=== PATIENT | male | born 1975 | race Caucasian/White ===

== ENCOUNTER 2021-06-22 11:55 | Observation (INO) ==
[2021-06-22] MEDS ORDERED: ONDANSETRON INJ 2 MG/ML 2 ML VIAL IV STA (12:06)
[2021-06-22] MEDS ORDERED: ASPIRIN CHEW 324 MG PO STA (12:06)
[2021-06-22] MEDS ORDERED: MoRPHine SULFATE 4 MG/ML 1 ML CARP\\VIAL IV STA (12:06)
[2021-06-22] MEDS ORDERED: ALUMINUM/MAGNESIUM SUSP 30 ML UDC PO STA (12:07)
--- NOTE | 2021-06-22 12:17 | Emergency Department Note ---
Impression & Plan Chest pain, exertional ED Provider Note NAME: STEVEN PATEL AGE: 46 SEX: M : 1975 ARRIVES VIA: Walk-In INFORMANT: Patient, ED PROVIDER(S): Edson Murcia DO CHIEF COMPLAINT: Chest pain HPI: The patient is a 46-year-old male who presented to the emergency department through triage for an evaluation of chest discomfort. The patient describes anterior chest pain in his upper chest. He states he sometimes notices it in h is left shoulder but for the most part it is nonradiating. The patient did notice the pain was somewhat worsened with exertion. 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 The patient states that he is never had similar symptoms in the past. He does have a family history of sudden cardiac . He denies having any medical issues but does have elevated blood pressure upon arrival to the emergency department. He states his symptoms are moderate. He denies having any lower extremity swelling. He has no pain upon deep breathing. He does not have a primary care physician. ROS: See above HPI for pertinent positives & negatives. A total of 10 systems reviewed and were otherwise negative. PAST MEDICAL HISTORY: See Below PAST SURGICAL HISTORY: See Below FAMILY HISTORY: See Below SOCIAL HISTORY: See Below HOME MEDICATIONS: See Below ALLERGIES: See Below VITALS: See Below PHYSICAL EXAMINATION: GENERAL: The patient is awake and alert. He appears to be uncomfortable. EYES: The conjunctivae are clear. The pupils are round and reactive. EARS, NOSE, MOUTH AND THROAT: The nose is without any evidence of any deformity. NECK: The neck is nontender and supple. RESPIRATORY: Normal respiratory effort is noted there is no evidence of wheezing rhonchi or rales CARDIOVASCULAR: Regular rate and rhythm noted there no murmurs rubs or gallops normal S1 normal S2. GASTROINTESTINAL: The abdomen is soft. Abdomen is nontender. MUSCULOSKELETAL/EXTREMITIES: There is no evidence of gross deformity full range of motion is noted in the hips and shoulders. SKIN: There is no obvious evidence of any rash. There are no petechiae, pallor or cyanosis noted. NEUROLOGIC: Patient is awake alert and oriented x3 MEDICAL DECISION MAKING: Patient is a 46-year-old male who presented to the emergency department for an evaluation of exertional chest pain. The patient had elevated blood pressure initially. I discussed the patient's laboratory and radiographic studies with him. I also discussed the limitations of the emergency department work-up for chest pain with him. Given his exertional symptoms and his risk factors he may have a higher heart score and may require provocative testing. The patient does not have a primary care physician currently. For this reason I discussed this case with the on-call [facility] freight manager and then the on-call [facility] hospitalist group. They have agreed to evaluate the patient for formal management and disposition. He was treated with aspirin and Maalox in the emergency department. He was reevaluated multiple times. Triage Nursing notes reviewed. Prior medical records reviewed Vital Signs: reviewed and remarkable for no significant abnormalities Differential diagnosis: Cardiac ischemia, aortic dissection, pulmonary embolism, pneumothorax, pneumonia, pericarditis, myocarditis, esophageal rupture, GERD, cholecystitis, pancreatitis, musculoskeletal, as well as other pathologies. ER treatment provided: See below Diagnostics interpreted by me: ECG: EKG was obtained in the emergency department. My interpretation is normal sinus rhythm at 100 bpm. There is no ectopy. There is no acute ST segment abnormalities noted. No previous tracing was available. Cardiac Monitoring: An order was placed for continuous cardiac monitoring. The monitor shows a rate of 79 bpm with sinus rhythm. Laboratory studies: As stated above and show below. Imaging studies: See below Consultation(s): I discussed this case with Nica bishop who is on-call for the [facility] hospitalist group. I discussed this case with Dr. Bhatia who is on-call for [facility] cardiology. 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 Beliefs That Will Affect Care: None Current Living Situation: Spouse Feels Safe at Home: Yes Safety Concerns: Feels Safe At This Time Assistive Devices: Glasses Allergies Allergies Allergy/AdvReac Type Severity Reaction Status Date / Time No Known Allergies Allergy Verified 06/22/21 13:45 Home Meds Home Medications Medication Instructions Recorded Confirmed No Known Home Medications 06/22/21 06/22/21 Results & Data (ED) Vital Signs Vital Signs - 24 hr 06/22/21 11:55 06/22/21 12:06 06/22/21 12:20 Temperature 37.2 C Temperature Source Oral Pulse Rate 110 H 85 84 Pulse Rate [Apical] 108 H Pulse Rate from SpO2 Sensor 84 Pulse Rhythm Regular Respiratory Rate 16 18 26 H Blood Pressure 170/103 H Blood Pressure [Left Arm] 107/103 H Blood Pressure Mean 125 Blood Pressure Mean [Left Arm] 104 Pulse Oximetry 98 96 96 Oxygen Delivery Method Room Air Sepsis Recent Fever Within 48 Hours No Sepsis New/Unexplained Change in Mental Status No Sepsis Action Taken by Nursing No Action Required 06/22/21 12:30 06/22/21 13:00 06/22/21 13:25 Temperature Temperature Source Pulse Rate 84 78 77 Pulse Rate [Apical] Pulse Rate from SpO2 Sensor 84 80 79 Pulse Rhythm Respiratory Rate 19 23 17 Blood Pressure 144/85 H Blood Pressure [Left Arm] Blood Pressure Mean 104 Blood Pressure Mean [Left Arm] Pulse Oximetry 94 95 96 Oxygen Delivery Method Sepsis Recent Fever Within 48 Hours Sepsis New/Unexplained Change in Mental Status Sepsis Action Taken by Nursing 06/22/21 13:30 06/22/21 14:00 06/22/21 14:30 Temperature Temperature Source Pulse Rate 89 80 83 Pulse Rate [Apical] 77 Pulse Rate from SpO2 Sensor 85 78 82 Pulse Rhythm Respiratory Rate 20 19 24 Blood Pressure 139/85 126/90 136/89 Blood Pressure [Left Arm] 126/90 Blood Pressure Mean 103 102 104 Blood Pressure Mean [Left Arm] 102 Pulse Oximetry 96 94 95 Oxygen Delivery Method Sepsis Recent Fever Within 48 Hours Sepsis New/Unexplained Change in Mental Status Sepsis Action Taken by Nursing 06/22/21 15:00 06/22/21 15:30 06/22/21 15:44 Temperature Temperature Source Pulse Rate 84 79 77 Pulse Rate [Apical] Pulse Rate from SpO2 Sensor 82 78 79 Pulse Rhythm Respiratory Rate 15 14 14 Blood Pressure 123/82 120/80 Blood Pressure [Left Arm] Blood Pressure Mean 95 93 Blood Pressure Mean [Left Arm] Pulse Oximetry 93 96 94 Oxygen Delivery Method Sepsis Recent Fever Within 48 Hours Sepsis New/Unexplained Change in Mental Status Sepsis Action Taken by Nursing 06/22/21 16:00 06/22/21 16:30 06/22/21 17:00 Temperature Temperature Source Pulse Rate 79 87 81 Pulse Rate [Apical] Pulse Rate from SpO2 Sensor 79 87 81 Pulse Rhythm Respiratory Rate 15 17 19 Blood Pressure 121/81 128/86 144/91 H Blood Pressure [Left Arm] Blood Pressure Mean 94 100 108 Blood Pressure Mean [Left Arm] Pulse Oximetry 93 96 94 Oxygen Delivery Method Sepsis Recent Fever Within 48 Hours Sepsis New/Unexplained Change in Mental Status Sepsis Action Taken by Nursing 06/22/21 17:30 Temperature Temperature Source Pulse Rate 84 Pulse Rate [Apical] Pulse Rate from SpO2 Sensor 84 Pulse Rhythm Respiratory Rate 17 Blood Pressure 156/106 H Blood Pressure [Left Arm] Blood Pressure Mean 122 Blood Pressure Mean [Left Arm] Pulse Oximetry 97 Oxygen Delivery Method Sepsis Recent Fever Within 48 Hours Sepsis New/Unexplained Change in Mental Status Sepsis Action Taken by [facility] Medications Current Medication List: was personally reviewed by me Laboratory Data Attestation: I reviewed the patient's lab results. Result diagrams: 06/23/21 03:58 06/23/21 02:43 Lab Results 06/22/21 06/22/21 06/22/21 Range/Units 12:16 12:16 12:16 WBC 6.85 (4.8-10.8) K/uL RBC 4.80 (4.7-6.1) M/uL Hgb 14.7 (14.0-18.0) g/dL Hct 43.4 (42-52) % MCV 90.4 (80-100) fL MCH 30.6 (25-34) pg MCHC 33.9 (32-36) g/dL RDW Std Deviation 43.0 (36.4-46.3) fL RDW Coeff of Cadence 13.1 (11.5-14.5) % Plt Count 264 (130-400) K/uL MPV 10.0 (7.4-10.4) fL Immature Gran % (Auto) 0.6 % Neut % (Auto) 56.3 % Lymph % (Auto) 29.1 % Christian % (Auto) 12.1 % Eos % (Auto) 1.6 % Baso % (Auto) 0.3 % Neut # (Auto) 3.86 (1.4-6.5) K/uL Lymph # (Auto) 1.99 (1.2-3.4) K/uL Christian # (Auto) 0.83 H (0.11-0.59) K/uL Eos # (Auto) 0.11 (0-0.5) K/uL Baso # (Auto) 0.02 (0-0.2) K/uL Immature Gran # (Auto) 0.04 H (0.00-0.02) K/uL PT 10.2 (9.0-12.0) Seconds INR 1.0 (0.9-1.1) APTT 25.4 (21.0-31.0) Seconds PTT Ratio 0.9 D-Dimer Cancelled 190 Sodium (136-145) mmol/L Potassium (3.5-5.1) mmol/L Chloride (98-107) mmol/L Carbon Dioxide (21-32) mmol/L Anion Gap (3-11) BUN (6-23) mg/dl Creatinine (0.6-1.4) mg/dl Est Cr Clr Drug Dosing ml/min Est GFR ( Amer) ml/min Est GFR (Non-Af Amer) ml/min BUN/Creatinine Ratio (10-20) Glucose (70-99(Fasting)) mg/dl Calcium (8.5-10.1) mg/dl Total Bilirubin (0.2-1.0) mg/dl AST (13-39) U/L ALT (7-52) U/L Alkaline Phosphatase (34-104) U/L Troponin I High Sens (0-20) pg/ml Total Protein (6.0-8.3) gm/dl Albumin (3.4-5.0) gm/dl Globulin (2.5-4.0) gm/dl Albumin/Globulin Ratio (0.9-2) Lipase (11-82) U/L 06/22/21 06/22/21 Range/Units 12:16 15:14 WBC (4.8-10.8) K/uL RBC (4.7-6.1) M/uL Hgb (14.0-18.0) g/dL Hct (42-52) % MCV (80-100) fL MCH (25-34) pg MCHC (32-36) g/dL RDW Std Deviation (36.4-46.3) fL RDW Coeff of Cadence (11.5-14.5) % Plt Count (130-400) K/uL MPV (7.4-10.4) fL Immature Gran % (Auto) % Neut % (Auto) % Lymph % (Auto) % Christian % (Auto) % Eos % (Auto) % Baso % (Auto) % Neut # (Auto) (1.4-6.5) K/uL Lymph # (Auto) (1.2-3.4) K/uL Christian # (Auto) (0.11-0.59) K/uL Eos # (Auto) (0-0.5) K/uL Baso # (Auto) (0-0.2) K/uL Immature Gran # (Auto) (0.00-0.02) K/uL PT (9.0-12.0) Seconds INR (0.9-1.1) APTT (21.0-31.0) Seconds PTT Ratio D-Dimer Sodium 137 (136-145) mmol/L Potassium 3.8 (3.5-5.1) mmol/L Chloride 103 (98-107) mmol/L Carbon Dioxide 25 (21-32) mmol/L Anion Gap 9 (3-11) BUN 19 (6-23) mg/dl Creatinine 1.02 (0.6-1.4) mg/dl Est Cr Clr Drug Dosing 130.4 ml/min Est GFR ( Amer) 100.3 ml/min Est GFR (Non-Af Amer) 86.5 ml/min BUN/Creatinine Ratio 18.6 (10-20) Glucose 110 H (70-99(Fasting)) mg/dl Calcium 9.5 (8.5-10.1) mg/dl Total Bilirubin 0.5 (0.2-1.0) mg/dl AST 20 (13-39) U/L ALT 27 (7-52) U/L Alkaline Phosphatase 58 (34-104) U/L Troponin I High Sens 4.5 4.6 (0-20) pg/ml Total Protein 6.9 (6.0-8.3) gm/dl Albumin 4.0 (3.4-5.0) gm/dl Globulin 2.9 (2.5-4.0) gm/dl Albumin/Globulin Ratio 1.4 (0.9-2) Lipase 18 (11-82) U/L Administered Medications Discontinued Medications Al Hydrox/Mg Hydrox/Simethicone (Aluminum/Magnesium Susp 30 Ml Udc) 30 ml PO NOW STA Stop: 06/22/21 12:08 Last Admin: 06/22/21 12:20 Dose: 30 ml Documented by: [id number] Aspirin (Aspirin Chew 324 Mg) 324 mg PO NOW STA Stop: 06/22/21 12:07 Last Admin: 06/22/21 12:21 Dose: 324 mg Documented by: [id number] Ioversol (Optiray 320 125ml) 119 ml IV ONCE ONE Stop: 06/22/21 13:52 Last Admin: 06/22/21 13:51 Dose: 119 ml Documented by: [id number] Morphine Sulfate (Morphine Sulfate 4 Mg/Ml 1 Ml Carp\Vial) 4 mg IV NOW STA Stop: 06/22/21 12:07 Last Admin: 06/22/21 12:20 Dose: 4 mg Documented by: [id number] Ondansetron HCl (Ondansetron Inj 2 Mg/Ml 2 Ml Vial) 4 mg IV NOW STA Stop: 06/22/21 12:07 Last Admin: 06/22/21 12:21 Dose: 4 mg Documented by: [id number] Imaging Data Radiologist's Impression: Chest X-Ray 06/22/21 12:06 XR chest 1V portable HISTORY: 46 years-old Male Chest Pain acute atypical chest pain COMPARISON: Chest radiograph 07/11/2005 TECHNIQUE: Portable AP view of the chest FINDINGS: The cardiac silhouette is mildly enlarged. No pneumothorax, pleural effusion, or overt pulmonary edema. Mild subsegmental bibasilar densities suggest atelectasis. Bones appear grossly intact. IMPRESSION: No acute process. ACT 112: Negative or not required by law. The above report was generated using voice recognition software. It may contain grammatical, syntax or spelling errors. Electronically signed by: Triston Barclay M.D. 06/22/2021 12:58 PM Chest CTA 06/22/21 13:33 CT angio chest dissec wo/w con HISTORY: 46 years-old Male CP acute chest pain COMPARISON: Chest radiograph of same day at 12:27 PM TECHNIQUE: CTA of the chest was obtained both with and without the use of 119 mL Optiray 320. 3-D coronal and sagittal MIPS were obtained from the axial data set and were submitted for review. All measurements were obtained according to NA SCET criteria. A dose lowering technique was used consistent with the principals of NAYELI. FINDINGS: CTA: The heart is normal in size. Minimal coronary artery calcifications. No thoracic aortic aneurysm or dissection. Bovine morphology of the thoracic aortic arch. There is patency of the imaged great vessels. Unremarkable pulmonary artery. CT CHEST: Unremarkable thyroid. There is no lymphadenopathy. No pneumothorax, pleural effusion, airspace consolidation or overt pulmonary edema. Mild bilateral bronchial wall thickening with subsegmental bibasilar atelectasis. There are no suspicious pulmonary nodules or masses. Indeterminate 4 mm solid nodule the basal left lower lobe, image 196. 6 mm fissural nodule of the left midlung on image 138 is suggestive of a probable lymph node. The central airways are p atent. Hepatic steatosis. Unremarkable soft tissues. Degenerative changes of the thoracic spine. The bones appear intact. IMPRESSION: 1. Unremarkable CTA of the chest. 2. No adenopathy, pleural effusion or airspace consolidation. 3. Mild nonspecific bronchial wall thickening may represent reactive airway disease versus bronchitis. 4. There are two low suspicion solid pulmonary nodules of the left lung measuring up to 6 mm. Please refer to below summary of Fleischner criteria recommendations for follow- up of incidental CT nodules (Henrique Bond, Guidelines for management of small pulmonary nodules detected on CT scans: A statement from the Fleischner Society, Radiology 237: [id number].) SOLID NODULES Multiple nodules size: <6 mm * Low risk patients: no routine follow-up * high risk patients: optional CT at 12 months Multiple nodules size: 6-8 mm * Low risk patients: follow-up at 3-6 months, then consider further follow-up at 18-24 months * high risk patients: follow-up at 3-6 months, then at 18-24 months if no change Note: newly detected indeterminate nodule in persons 35 years of age or older. * Low risk patients: minimal or absent history of smoking and/or other known risk factors * high risk patients: history of smoking or of other known risk factors (e.g. first degree relative with lung cancer, or exposure to asbestos, radon, uranium) * if a nodule up to 8 mm is partly solid or is ground glass further follow-up is required after 24 months to exclude possible slow growing adenocarcinoma (GANESH) ACT 112: Negative or not required by law. The above report was generated using voice recognition software. It may contain grammatical, syntax or spelling errors. Electronically signed by: Triston Barclay M.D. 06/22/2021 2:36 PM Discharge Plan Visit Data Chief Complaint: Chest Pain Stated Complaint: WEAKNESS, CHEST PAINS ED Provider: Edson Murcia Discharge Problem: Chest pain, exertional Patient Disposition: Admitted As Inpatient Discharge Instructions Interventions: ED Discharge Assessment Last Done: 06/22/21 19:49
[2021-06-22 12:28] LABS: Basophils # (auto) 0.02 K/uL (0-0.2); Basophils % (auto) 0.3 %; Eosinophils # (auto) 0.11 K/uL (0-0.5); Eosinophils % (auto) 1.6 %; Hematocrit (blood only) 43.4 % (42-52); Hemoglobin 14.7 g/dL (14.0-18.0); Immature Granulocytes # (auto) 0.04 K/uL (0.00-0.02); Immature Granulocytes % (auto) 0.6 %; Lymphocytes # (auto) 1.99 K/uL (1.2-3.4); Lymphocytes % (auto) 29.1 %; Mean Corpuscular Hemoglobin 30.6 pg (25-34); Mean Corpuscular Hgb Conc 33.9 g/dL (32-36); Mean Corpuscular Volume 90.4 fL (80-100); Monocytes # (auto) 0.83 K/uL (0.11-0.59); Monocytes % (auto) 12.1 %; Neutrophils # (auto) 3.86 K/uL (1.4-6.5); Neutrophils % (auto) 56.3 %; Platelet Count 264 K/uL (130-400); RDW Coefficient of Variation 13.1 % (11.5-14.5); White Blood Count 6.85 K/uL (4.8-10.8)
[2021-06-22 12:54] LABS: Albumin Globulin Ratio 1.4 (0.9-2); BUN Creatinine Ratio 18.6 (10-20); Bilirubin,Total 0.5 mg/dl (0.2-1.0); Calcium 9.5 mg/dl (8.5-10.1); Creatinine Clr Calc Pharmacy 130.4 ml/min; Est GFR (African American) 100.3 ml/min; Est GFR (Non-African American) 86.5 ml/min; Globulin 2.9 gm/dl (2.5-4.0); Potassium 3.8 mmol/L (3.5-5.1); Total Protein 6.9 gm/dl (6.0-8.3)
[2021-06-22 12:57] LABS: Troponin I High Sensitivity 4.5 pg/ml (0-20)
--- NOTE | 2021-06-22 12:59 | XRay Report ---
XR chest 1V portable HISTORY: 46 years-old Male Chest Pain acute atypical chest pain COMPARISON: Chest radiograph 07/11/2005 TECHNIQUE: Portable AP view of the chest FINDINGS: The cardiac silhouette is mildly enlarged. No pneumothorax, pleural effusion, or overt pulmonary rony a. Mild subsegmental bibasilar densities suggest atelectasis. Bones appear grossly intact. IMPRESSION: No acute process. ACT 112: Negative or not required by law. The above report was generated using voice recognition software. It may contain grammatical, syntax o r spelling errors. Electronically signed by: Triston Barclay M.D. 06/22/2021 12:58 PM
[2021-06-22 13:01] LABS: Partial Thromboplastin Ratio 0.9; Partial Thromboplastin Time 25.4 Seconds (21.0-31.0); Prothrombin Time 10.2 Seconds (9.0-12.0)
[2021-06-22 13:31] LABS: D Dimer 190 ug/L FEU (0-500)
[2021-06-22] MEDS ORDERED: OPTIRAY 320 125ml IV ONE (13:51)
--- NOTE | 2021-06-22 14:38 | CT Scan Report ---
CT angio chest dissec wo/w con HISTORY: 46 years-old Male CP acute chest pain COMPARISON: Chest radiograph of same day at 12:27 PM TECHNIQUE: CTA of the chest was obtained both with and without the use of 119 mL Optiray 320. 3-D cor onal and sagittal MIPS were obtained from the axial data set and were submitted for review. All measu rements were obtained according to NASCET criteria. A dose lowering technique was used consistent wit h the principals jordan TYLER. FINDINGS: CTA: The heart is normal in size. Minimal coronary artery calcifications. No thoracic aortic aneurysm or d issection. Bovine morphology of the thoracic aortic arch. There is patency of the imaged great vessel s. Unremarkable pulmonary artery. CT CHEST: Unremarkable thyroid. There is no lymphadenopathy. No pneumothorax, pleural effusion, airspace consol idation or overt pulmonary edema. Mild bilateral bronchial wall thickening with subsegmental bibasila r atelectasis. There are no suspicious pulmonary nodules or masses. Indeterminate 4 mm solid nodule t he basal left lower lobe, image 196. 6 mm fissural nodule of the left midlung on image 138 is suggest hubert of a probable lymph node. The central airways are patent. Hepatic steatosis. Unremarkable soft tissues. Degenerative changes of the thoracic spine. The bones a ppear intact. IMPRESSION: 1. Unremarkable CTA of the chest. 2. No adenopathy, pleural effusion or airspace consolidation. 3. Mild nonspecific bronchial wall thickening may represent reactive airway disease versus bronchitis . 4. There are two low suspicion solid pulmonary nodules of the left lung measuring up to 6 mm. Please refer to below summary of Fleischner criteria recommendations for follow-up of incidental CT n odules (Henrique Bond, Guidelines for management of small pulmonary nodules detected on CT scans: A sta tement from the Fleischner Society, Radiology 237: [phone].) SOLID NODULES Multiple nodules size: <6 mm * Low risk patients: no routine follow-up * high risk patients: optional CT at 12 months Multiple nodules size: 6-8 mm * Low risk patients: follow-up at 3-6 months, then consider further follow-up at 18-24 months * high risk patients: follow-up at 3-6 months, then at 18-24 months if no change Note: newly detected indeterminate nodule in persons 35 years of age or older. * Low risk patients: minimal or absent history of smoking and/or other known risk factors * high risk patients: history of smoking or of other known risk factors (e.g. first degree relative with lung cancer, or exposure to asbestos, radon, uranium) * if a nodule up to 8 mm is partly solid or is ground glass further follow-up is required after 24 m onths to exclude possible slow growing adenocarcinoma (GANESH) ACT 112: Negative or not required by law. The above report was generated using voice recognition software. It may contain grammatical, syntax o r spelling errors. Electronically signed by: Triston Barclay M.D. 06/22/2021 2:36 PM
--- NOTE | 2021-06-22 17:56 | History & Physical Report ---
Date of Service June 22, 2021 Assessment & Plan (1) Chest pain, exertional: Plan: Admit to telemetry Patient presenting from home with reports of chest pain after a bike ride last evening and after climbing a flight of stairs this morning. High-sensitivity troponin negative x 2, EKG shows NSR Noted to be hypertensive on arrival at 170/103, no previous history of hypertension, hypertensive urgency may be contributing. BP did improve after IV morphine and full dose aspirin given in ED. No ACS risk factors identified. Check lipid panel in AM CTA chest negative for dissection and pulmonary embolism Trend troponin Resting echo Repeat EKG now due to returning chest pain Cardiology consult, possible stress test tomorrow (2) Pulmonary nodule: Plan: CTA chest shows There are two low suspicion solid pulmonary nodules of the left lung measuring up to 6 mm. Outpatient follow-up (3) DVT prophylaxis: Plan: SCDs History of Present Illness Chief Complaint: Chest pain Primary Care Provider: NO PCP 46-year-old male without significant past medical or surgical history who presents the ED for evaluation of chest pain. 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 Last evening while on a bike ride, patient reports that about chcf through his ride he developed chest discomfort and fatigue. Patient reports he was able to finish his ride however when he retu rned home, the chest discomfort continued for about 1 hour. Patient describes the discomfort as a tightness. Patient notes over the past couple of days he had a left arm discomfort as well. This morning after climbing 1 flight of stairs at work, he again developed chest pain and left arm discomfort. Patient reports associated lightheadedness and dizziness. No diaphoresis, nausea, shortness of breath. Patient reports he otherwise has been feeling well recently. No other recent illnesses, fevers, chills. Denies abdominal pain, vomiting, diarrhea. No urinary symptoms. In the ED, patient received full dose aspirin and IV morphine. Patient reports chest pain was resolved however is starting to return. BP on presentation 170/103. High-sensitivity troponin negative x 2. EKG demonstrates NSR. Allergies Allergy/AdvReac Type Severity Reaction Status Date / Time No Known Allergies Allergy Verified 06/22/21 13:45 Home Medications Medication Instructions Recorded Confirmed Type No Known Home Medications 06/22/21 06/22/21 History Past Med/Surg History Medical History No significant past medical history Surgical History No significant past surgical history Family History Uncle Heart disease Social History Smoking Status: Never smoker Hx Alcohol Use: Yes Alcohol Intake Frequency: 2-3 x/Week Preferred Language: Vietnamese Feels Safe at Home: Yes Review of Systems Review of Systems: ROS per HPI, all other systems reviewed and negative Physical Exam Constitutional: WD/WN, vitals as above Eyes: PERRL, conjunctivae normal, anicteric sclerae ENMT: external ear and nose normal, oropharynx normal Respiratory: normal respiratory effort, lungs clear to auscultation Cardiovascular: Rate/Rhythm: regular rate and regular rhythm Vessels: normal peripheral pulses Extremities: no edema Gastrointestinal (Abdomen): normal bowel sounds, soft, nontender, no hepatosplenomegaly Musculoskeletal: no cyanosis or clubbing, extremities motor strength 5/5 Skin: no rashes, warm and dry Neurologic: PERRL, EOMI, accommodation nl, no face palsy, no dysarthria Psychiatric: A+Ox3, euthymic affect Results & Data Results & Data ([facility]) Vital Signs (Past 12 Hours) Vital Signs Temp Pulse Pulse Resp BP BP Pulse Ox 06/22/21 17:30 84 17 156/106 H 97 06/22/21 17:00 81 19 144/91 H 94 06/22/21 16:30 87 17 128/86 96 06/22/21 16:00 79 15 121/81 93 06/22/21 15:44 77 14 120/80 94 06/22/21 15:30 79 14 96 06/22/21 15:00 84 15 123/82 93 06/22/21 14:30 83 24 136/89 95 06/22/21 14:00 80 77 19 126/90 126/90 94 06/22/21 13:30 89 20 139/85 96 06/22/21 13:25 77 17 144/85 H 96 06/22/21 13:00 78 23 95 06/22/21 12:30 84 19 94 06/22/21 12:20 84 26 H 96 06/22/21 12:06 85 18 96 06/22/21 11:55 37.2 C 110 H 108 H 16 170/103 H 107/103 H 98 Laboratory Results Short CBC 06/22/21 Range/Units 12:16 WBC 6.85 (4.8-10.8) K/uL Hgb 14.7 (14.0-18.0) g/dL Hct 43.4 (42-52) % Plt Count 264 (130-400) K/uL BMP 06/22/21 12:16 Sodium 137 Potassium 3.8 Chloride 103 Carbon Dioxide 25 BUN 19 Creatinine 1.02 Glucose 110 H Calcium 9.5 Liver Function 06/22/21 Range/Units 12:16 Total Bilirubin 0.5 (0.2-1.0) mg/dl AST 20 (13-39) U/L ALT 27 (7-52) U/L Alkaline Phosphatase 58 (34-104) U/L Albumin 4.0 (3.4-5.0) gm/dl Diagnostic Findings Chest X-Ray 06/22/21 12:06 XR chest 1V portable HISTORY: 46 years-old Male Chest Pain acute atypical chest pain COMPARISON: Chest radiograph 07/11/2005 TECHNIQUE: Portable AP view of the chest FINDINGS: The cardiac silhouette is mildly enlarged. No pneumothorax, pleural effusion, or overt pulmonary edema. Mild subsegmental bibasilar densities suggest atelectasis. Bones appear grossly intact. IMPRESSION: No acute process. ACT 112: Negative or not required by law. The above report was generated using voice recognition software. It may contain grammatical, syntax or spelling errors. Electronically signed by: Triston Barclay M.D. 06/22/2021 12:58 PM Chest CTA 06/22/21 13:33 CT angio chest dissec wo/w con HISTORY: 46 years-old Male CP acute chest pain COMPARISON: Chest radiograph of same day at 12:27 PM TECHNIQUE: CTA of the chest was obtained both with and without the use of 119 mL Optiray 320. 3-D coronal and sagittal MIPS were obtained from the axial data set and were submitted for review. All measurements were obtained according to NASCET criteria. A dose lowering technique was used consistent with the principals of NAYELI. FINDINGS: CTA: The heart is normal in size. Minimal coronary artery calcifications. No thoracic aortic aneurysm or dissection. Bovine morphology of the thoracic aortic arch. There is patency of the imaged great vessels. Unremarkable pulmonary artery. CT CHEST: Unremarkable thyroid. There is no lymphadenopathy. No pneumothorax, pleural effusion, airspace consolidation or overt pulmonary edema. Mild bilateral bron chial wall thickening with subsegmental bibasilar atelectasis. There are no suspicious pulmonary nodules or masses. Indeterminate 4 mm solid nodule the basal left lower lobe, image 196. 6 mm fissural nodule of the left midlung on image 138 is suggestive of a probable lymph node. The central airways are patent. Hepatic steatosis. Unremarkable soft tissues. Degenerative changes of the thoracic spine. The bones appear intact. IMPRESSION: 1. Unremarkable CTA of the chest. 2. No adenopathy, pleural effusion or airspace consolidation. 3. Mild nonspecific bronchial wall thickening may represent reactive airway disease versus bronchitis. 4. There are two low suspicion solid pulmonary nodules of the left lung measuring up to 6 mm. Please refer to below summary of Fleischner criteria recommendations for follow- up of incidental CT nodules (Henrique Bond, Guidelines for management of small pulmonary nodules detected on CT scans: A statement from the Fleischner Society, Radiology 237: [id number].) SOLID NODULES Multiple nodules size: <6 mm * Low risk patients: no routine follow-up * high risk patients: optional CT at 12 months Multiple nodules size: 6-8 mm * Low risk patients: follow-up at 3-6 months, then consider further follow-up at 18-24 months * high risk patients: follow-up at 3-6 months, then at 18-24 months if no change Note: newly detected indeterminate nodule in persons 35 years of age or older. * Low risk patients: minimal or absent history of smoking and/or other known risk factors * high risk patients: history of smoking or of other known risk factors (e.g. first degree relative with lung cancer, or exposure to asbestos, radon, uranium) * if a nodule up to 8 mm is partly solid or is ground glass further follow-up is required after 24 months to exclude possible slow growing adenocarcinoma (GANESH) ACT 112: Negative or not required by law. The above report was generated using voice recognition software. It may contain grammatical, syntax or spelling errors. Electronically signed by: Triston Barclay M.D. 06/22/2021 2:36 PM Code Status & VTE Plan VTE Prophylaxis Plan VTE Prophylaxis will be ordered: Yes Supervising Physician Co-Signing Physician Notes 46-year-old man with nonsignificant PMH presented to the ED 06/22 for evaluation of chest pain. Per patient, a chest pain started as a dull pain while riding bike the evening prior to arrival, nonreproducible, associated with left arm soreness and not relieved with Tums that he tried at home. He had further similar chest pain in the morning of the day of arrival, worsened with exertion. Patient was feeling chest tightness whole day until he received morphine and aspirin in the ED, at bedside exam he again started to develop some chest tightness, EKG was repeated which came back with no acute ST or T changes. Troponin x2 has been negative, trend troponin. ED reached out to cardiology, possible stress test tomorrow. N.p.o. midnight. Family history of uncle having MN in his 40s, no cardiac condition/disease in siblings or mother. Not sure about cardiac history in father. Patient quit smoking 20 years ago, drinks 5-10 drinks a week, no recreational drug use. Trend troponin, cardiology already aware, ECHO, likely stress test tomorrow, nitro as needed, EKG as needed for chest pain. Lipid profile in AM. CTA chest with two 6 mm left lung nodules, needs to be followed up as an outpatient in 3 to 6 months. Upon examination: GENERAL: Alert and oriented x3. NAD, on RA. HEENT: No pallor, no icterus. Pupils equal, round and reactive to light. Oral mucosa moist. NECK: No JVD, no neck masses. HEART: S1 and S2 heard. Regular rate and rhythm. No murmur, no gallop. RESPIRATORY SYSTEM: Normal AP diameter. No accessory muscle use. No wheezing, no crackles. ABDOMEN: Soft, bowel sounds present, nontender, no distention. CENTRAL NERVOUS SYSTEM: No facial droop. Speech is clear. Obeys simple commands. Moves extremities. EXTREMITIES: No edema, no erythema seen. I have seen and examined the patient and have discussed the case with the provider above. I agree with the assessment and plan as stated.
[2021-06-22] MEDS ORDERED: ACETAMINOPHEN 325 MG TAB PO PRN (20:03)
[2021-06-22] MEDS ORDERED: NITROGLYCERIN SL 0.4 MG/TAB TAB SL PRN (20:03)
[2021-06-23 03:22] LABS: BUN Creatinine Ratio 17.6 (10-20); Calcium 8.5 mg/dl (8.5-10.1); Chol HDL Ratio 4.1 (0-5); Est GFR (African American) 93.6 ml/min; Est GFR (Non-African American) 80.7 ml/min
[2021-06-23 04:14] LABS: Hematocrit (blood only) 41.9 % (42-52); Hemoglobin 14.2 g/dL (14.0-18.0); Mean Corpuscular Hemoglobin 31.1 pg (25-34); Mean Corpuscular Volume 91.9 fL (80-100); Mean Platelet Volume 9.9 fL (7.4-10.4); Platelet Count 245 K/uL (130-400); RDW Coefficient of Variation 13.2 % (11.5-14.5); RDW Standard Deviation 43.7 fL (36.4-46.3); Red Blood Count 4.56 M/uL (4.7-6.1); White Blood Count 6.01 K/uL (4.8-10.8)
[2021-06-23 04:35] LABS: Mean Corpuscular Hgb Conc 33.9 g/dL (32-36)
--- NOTE | 2021-06-23 07:51 | Electrocardiogram Report ---
Test Reason : Blood Pressure : / mmHG Vent. Rate : 100 BPM Atrial Rate : 100 BPM P-R Int : 164 ms QRS Dur : 092 ms QT Int : 346 ms P-R-T Axes : -02 004 032 degrees QTc Int : 446 ms Normal sinus rhythm Normal ECG No previous ECGs available Confirmed by Markos Machuca ([id number]) on 06/23/2021 7:50:55 AM Referred By: REFERRED SELF Confirmed By:Markos Machuca
--- NOTE | 2021-06-23 10:07 | Hospitalist Progress Note ---
Date of Service June 23, 2021 Assessment & Plan (1) Chest pain, exertional: Plan: sinus rhythm Patient presenting from home with reports of chest pain after a bike ride and again after climbing stairs. Seasonal allergies may be contributing? Possible heartburn with referred pain to chest? chest pain symptoms are still present this am. BP within normal limits. Reports maalox given yesterday was not able to resolve his chest pain but that he did feel better somewhat (was given morphine and asa simultaneously) High-sensitivity troponin negative x 4, EKG shows NSR without signs of acute ischemia Noted to be hypertensive on arrival, no previous history of hypertension, hypertensive urgency may be contributing. BP did improve after IV morphine and full dose aspirin given in ED. Lipid panel WNL CTA chest negative for dissection and pulmonary embolism Resting echo performed this am with reading pending. Cardiology consultation for recommendations (2) Pulmonary nodule: Plan: CTA chest shows There are two low suspicion solid pulmonary nodules of the left lung measuring up to 6 mm. Outpatient follow-up recommended (3) DVT prophylaxis: Plan: Lovenox Full Code Dispo-to home pending cardiology recs. Kylie Douglas DO [facility] Hospitalist Admission and Anticipated Discharge Date Admission Date: June 22, 2021 Subjective 46 yo nonsmoker, nondiabetic presents with substernal chest pain that began two days ago and was associated with left arm soreness with occasional left finger numbness and tingling. This CP and LUE symptoms are still present this morning. ACS was ruled out overnight with negative serial trop enzymes and no ischemic changes on EKG. Initial BP was elevated to 156/106, improved with morphine. BP has been within normal range overnight. He doesn't have a regular PCP and doesn't check his BP at home. He reports an early PA in his uncle in his 40s, but doesn't know any other family history. Concerning that father suddenly of unknown cause in his late 60s. He does report a h/o allergies last year that caused a similar issue with chest pain. At that time he took an antihistamine for one month and because it didn't make him feel well, he stopped it. The chest pain ultimately went away. He also reports having gotten a cat in the home last year around that time, which he thought may be contributing. He denies taking anything for acid reflux but does report the occasional symptom of heartburn after eating trigger foods such as greasy pizza Lipid panel reviewed this am and WNL. Review of Systems Review of Systems: All systems were reviewed and negative except as indicated in HPI above. Physical Exam Physical Exam: CONSTITUTIONAL: WNWD, vitals as above, generally well- appearing EYES: normal conjunctivae, no scleral icterus, glasses ENT: external ear and nose normal, MMM NECK: trachea midline RESPIRATORY: clear to auscultation bilaterally, no crackles, rales or wheezes, normal respiratory effort CARDIOVASCULAR: regular rate and rhythm, S1 and 2 heard without murmurs, gallops or rubs, no JVD, no peripheral edema CHEST: inspection of chest was normal GASTROINTESTINAL: soft, nontender, ND, no guarding MUSCULOSKELETAL: strength 5/5 throughout, head is normocephalic and atraumatic, normal palpation of chest wall without tenderness SKIN: warm and dry, no rashes NEUROLOGIC: CN 2-12 grossly intact, no sensory deficit, normal cognition, normal speech, no tremor PSYCHIATRIC: alert cooperative and oriented to person, place and time. Euthymic mood, makes good eye contact, language grossly intact, recent and remote memory grossly intact. Results & Data Results & Data ([facility]) Vital Signs (Past 12 Hours) Vital Signs Temp Pulse Pulse Resp BP Pulse Ox 06/23/21 08:00 61 06/23/21 07:17 36.8 C 67 17 118/74 93 06/23/21 03:54 36.5 C 66 16 109/67 96 06/22/21 23:35 36.7 C 67 16 98/61 L 98 06/22/21 23:04 64 Laboratory Results Short CBC 06/22/21 06/23/21 06/23/21 Range/Units 12:16 02:43 03:58 WBC 6.85 Cancelled 6.01 (4.8-10.8) K/uL Hgb 14.7 Cancelled 14.2 (14.0-18.0) g/dL Hct 43.4 Cancelled 41.9 L (42-52) % Plt Count 264 Cancelled 245 (130-400) K/uL BMP 06/22/21 06/23/21 12:16 02:43 Sodium 137 139 Potassium 3.8 4.0 Chloride 103 105 Carbon Dioxide 25 27 BUN 19 19 Creatinine 1.02 1.08 Glucose 110 H 96 Calcium 9.5 8.5 Liver Function 06/22/21 Range/Units 12:16 Total Bilirubin 0.5 (0.2-1.0) mg/dl AST 20 (13-39) U/L ALT 27 (7-52) U/L Alkaline Phosphatase 58 (34-104) U/L Albumin 4.0 (3.4-5.0) gm/dl Medications Administered Current Inpatient Medications Acetaminophen (Acetaminophen 325 Mg Tab) 650 mg PO Q4H PRN PRN Reason: Pain or Fever Stop: 07/22/21 20:02 Nitroglycerin (Nitroglycerin Sl 0.4 Mg/Tab Tab) 0.4 mg SL UD PRN PRN Reason: Chest Pain Stop: 07/22/21 20:02
[2021-06-23] MEDS ORDERED: ASPIRIN 81 MG ECTAB PO SCH (10:15)
--- NOTE | 2021-06-23 11:43 | Cardiology Consultation ---
Date of Consultation June 23, 2021 Assessment & Plan (1) Chest pain: (2) Bicuspid aortic valve: 46-year-old patient presents to the emergency department complaining of chest discomfort with atypical features. Chest discomfort constant over the past 24 hours without elevation of troponin, ECG changes, or wall motion abnormality per echocardiogram. Echocardiogram reveals possible bicuspid aortic valve without stenosis or regurgitation. Telemetry reveals sinus rhythm without dysrhythmia. There is no evidence of pericardial effusion. CT angiogram of the chest without acute intrathoracic pathology. Recommend exercise stress echocardiography for further risk stratification. Addendum: Exercise stress echo negative for inducible ischemia at high workload. No further inpatient cardiac testing or intervention at this time. Recommend repeat 2D transthoracic echocardiogram and cardiology follow-up in the outpatient setting for further assessment of possible bicuspid aortic valve. Alternative etiologies of the patient's discomfort including GI or musculoskeletal discussed. Further evaluation treatment as per internal medicine. History of Present Illness Reason for Consultation: chest pain Requesting Physician: Dr. Douglas Attending Physician: Kylie Douglas DO History of Present Illness 38-year-old patient presented to the ER with chest and arm discomfort. 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 The discomfort seem to be more or less constant over the past few days. He came to the ER today due to some lightheadedness while at work. The discomfort is not affected by activity or exertion. Describes it as 1-2/10 ache in his left pectoral region. Discomfort is not affected by activity or movement. Notes a mild worsening of the pain with deep inspiration. No cough, fever, chills, or sick contacts. ECG on admission within normal limits. Cardiac enzymes are undetectable. His resting 2D transthoracic echocardiogram demonstrates normal wall motion. Allergies Allergy/AdvReac Type Severity Reaction Status Date / Time No Known Allergies Allergy Verified 06/22/21 13:45 Home Medications Medication Instructions Recorded Confirmed Type No Known Home Medications 06/22/21 06/22/21 History Patient History Medical History No significant past medical history Surgical History No significant past surgical history Family History Uncle Heart disease Social History Smoking Status: Former smoker Second Hand Exposure: Yes; Do You Dip or Chew Tobacco: No; Hx Alcohol Use: Yes Alcohol type: beer Alcohol Intake Frequency: 2-3 x/Week Hx Substance Use: No Preferred Language: Dominican Communication Ability: Effective Bootmaker Required: No Beliefs That Will Affect Care: None Current Living Situation: Spouse Feels Safe at Home: Yes Safety Concerns: Feels Safe At This Time Assistive Devices: Glasses Review of Systems Review of Systems: All systems reviewed & are unremarkable except as noted in Subjective Physical Exam Constitutional: well nourished; no acute distress Respiratory: normal respiratory effort; no respiratory distress, no labored breathing and no retractions Auscultation: lungs clear to auscultation bilaterally; no crackles, no rales, no rhonchi and no wheezes Cardiovascular: Rate/Rhythm: regular rate and regular rhythm Heart Sounds: normal S1 and normal S2 Vessels: femoral pulses present and radial pulses present; no JVD and no carotid bruit Extremities: no edema Gastrointestinal (Abdomen): Inspection/Auscultation: abdomen normal to inspection; abdomen not distended Percussion/Palpation: abdomen nontender, no guarding, abdomen not rigid and + abdomen not soft Neurologic: CN's II-XI intact bilaterally and moves all extremities; no focal motor deficits Motor/Sensory: no tremor Psychiatric: A+Ox3, euthymic affect Results & Data ([facility]) Vital Signs (Past 12 Hours) Vital Signs Temp Pulse Pulse Resp BP Pulse Ox 06/23/21 08:00 61 06/23/21 07:17 36.8 C 67 17 118/74 93 06/23/21 03:54 36.5 C 66 16 109/67 96 06/22/21 23:35 36.7 C 67 16 98/61 L 98
--- NOTE | 2021-06-23 13:46 | Discharge Summary ---
Date of Service June 23, 2021 Admission HPI Per Admitting Provider 46-year-old male without significant past medical or surgical history who presents the ED for evaluation of chest pain. 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 Last evening while on a bike ride, patient reports that about fci through his ride he developed chest discomfort and fatigue. Patient reports he was able to finish his ride however when he returned home, the chest discomfort continued for about 1 hour. Patient describes the discomfort as a tightness. Patient notes over the past couple of days he had a left arm discomfort as well. This morning after climbing 1 flight of stairs at work, he again developed chest pain and left arm discomfort. Patient reports associated lightheadedness and dizziness. No diaphoresis, nausea, shortness of breath. Patient reports he otherwise has been feeling well recently. No other recent illnesses, fevers, chills. Denies abdominal pain, vomiting, diarrhea. No urinary symptoms. In the ED, patient received full dose aspirin and IV morphine. Patient reports chest pain was resolved however is starting to return. BP on presentation 170/103. High-sensitivity troponin negative x 2. EKG demonstrates NSR. Admission Exam Per Admitting Provider Constitutional: WD/WN, vitals as above Eyes: PERRL, conjunctivae normal, anicteric sclerae ENMT: external ear and nose normal, oropharynx normal Respiratory: normal respiratory effort, lungs clear to auscultation Cardiovascular: Rate/Rhythm: regular rate and regular rhythm Vessels: normal peripheral pulses Extremities: no edema Gastrointestinal (Abdomen): normal bowel sounds, soft, nontender, no hepatosplenomegaly Musculoskeletal: no cyanosis or clubbing, extremities motor strength 5/5 Skin: no rashes, warm and dry Neurologic: PERRL, EOMI, accommodation nl, no face palsy, no dysarthria Psychiatric: A+Ox3, euthymic affect Principal Diagnosis chest pain possibly 2/2 heartburn bicuspid aortic valve SPN Discharge Exam CONSTITUTIONAL: WNWD, vitals as above, generally well-appearing EYES: normal conjunctivae, no scleral icterus, glasses ENT: external ear and nose normal, MMM NECK: trachea midline RESPIRATORY: clear to auscultation bilaterally, no crackles, rales or wheezes, normal respiratory effort CARDIOVASCULAR: regular rate and rhythm, S1 and 2 heard without murmurs, ga llops or rubs, no JVD, no peripheral edema CHEST: inspection of chest was normal GASTROINTESTINAL: soft, nontender, ND, no guarding MUSCULOSKELETAL: strength 5/5 throughout, head is normocephalic and atraumatic, normal palpation of chest wall without tenderness SKIN: warm and dry, no rashes NEUROLOGIC: CN 2-12 grossly intact, no sensory deficit, normal cognition, normal speech, no tremor PSYCHIATRIC: alert cooperative and oriented to person, place and time. Euthymic mood, makes good eye contact, language grossly intact, recent and remote memory grossly intact. Discharge Data Allergies Allergy/AdvReac Type Severity Reaction Status Date / Time No Known Allergies Allergy Verified 06/22/21 13:45 Consultations 06/22/21 17:15 Consult Cardiology Stat ED Decision to Admit Stat 06/22/21 20:03 Consult Cardiology Routine Ordered Studies Laboratory Results WBC 6.01 K/uL (4.8-10.8) 06/23/21 03:58 RBC 4.56 M/uL (4.7-6.1) L 06/23/21 03:58 Hgb 14.2 g/dL (14.0-18.0) 06/23/21 03:58 Hct 41.9 % (42-52) L 06/23/21 03:58 MCV 91.9 fL (80-100) 06/23/21 03:58 MCH 31.1 pg (25-34) 06/23/21 03:58 MCHC 33.9 g/dL (32-36) 06/23/21 03:58 RDW Std Deviation 43.7 fL (36.4-46.3) 06/23/21 03:58 RDW Coeff of Cadence 13.2 % (11.5-14.5) 06/23/21 03:58 Plt Count 245 K/uL (130-400) 06/23/21 03:58 MPV 9.9 fL (7.4-10.4) 06/23/21 03:58 Immature Gran % (Auto) 0.6 % 06/22/21 12:16 Neut % (Auto) 56.3 % 06/22/21 12:16 Lymph % (Auto) 29.1 % 06/22/21 12:16 [place] % (Auto) 12.1 % 06/22/21 12:16 Eos % (Auto) 1.6 % 06/22/21 12:16 Baso % (Auto) 0.3 % 06/22/21 12:16 Neut # (Auto) 3.86 K/uL (1.4-6.5) 06/22/21 12:16 Lymph # (Auto) 1.99 K/uL (1.2-3.4) 06/22/21 12:16 [place] # (Auto) 0.83 K/uL (0.11-0.59) H 06/22/21 12:16 Eos # (Auto) 0.11 K/uL (0-0.5) 06/22/21 12:16 Baso # (Auto) 0.02 K/uL (0-0.2) 06/22/21 12:16 Immature Gran # (Auto) 0.04 K/uL (0.00-0.02) H 06/22/21 12:16 Absolute Nucleated RBC Cancelled 06/23/21 02:43 Nucleated RBC % (auto) Cancelled 06/23/21 02:43 Platelet Estimate Cancelled 06/23/21 02:43 PT 10.2 Seconds (9.0-12.0) 06/22/21 12:16 INR 1.0 (0.9-1.1) 06/22/21 12:16 APTT 25.4 Seconds (21.0-31.0) 06/22/21 12:16 PTT Ratio 0.9 06/22/21 12:16 D-Dimer 190 ug/L FEU (0-500) 06/22/21 12:16 D-Dimer Cancelled 06/22/21 12:16 Sodium 139 mmol/L (136-145) 06/23/21 02:43 Potassium 4.0 mmol/L (3.5-5.1) 06/23/21 02:43 Chloride 105 mmol/L (98-107) 06/23/21 02:43 Carbon Dioxide 27 mmol/L (21-32) 06/23/21 02:43 Anion Gap 7 (3-11) 06/23/21 02:43 BUN 19 mg/dl (6-23) 06/23/21 02:43 Creatinine 1.08 mg/dl (0.6-1.4) 06/23/21 02:43 Est Cr Clr Drug Dosing 118.0 ml/min 06/23/21 02:43 Est GFR ( Amer) 93.6 ml/min 06/23/21 02:43 Est GFR (Non-Af Amer) 80.7 ml/min 06/23/21 02:43 BUN/Creatinine Ratio 17.6 (10-20) 06/23/21 02:43 Glucose 96 mg/dl (70-99(Fasting)) 06/23/21 02:43 Calcium 8.5 mg/dl (8.5-10.1) 06/23/21 02:43 Total Bilirubin 0.5 mg/dl (0.2-1.0) 06/22/21 12:16 AST 20 U/L (13-39) 06/22/21 12:16 ALT 27 U/L (7-52) 06/22/21 12:16 Alkaline Phosphatase 58 U/L (34-104) 06/22/21 12:16 Troponin I High Sens 5.0 pg/ml (0-20) 06/23/21 02:43 Total Protein 6.9 gm/dl (6.0-8.3) 06/22/21 12:16 Albumin 4.0 gm/dl (3.4-5.0) 06/22/21 12:16 Globulin 2.9 gm/dl (2.5-4.0) 06/22/21 12:16 Albumin/Globulin Ratio 1.4 (0.9-2) 06/22/21 12:16 Triglycerides 193 mg/dl (0-150) H 06/23/21 02:43 Cholesterol 173 mg/dl (0-200) 06/23/21 02:43 LDL Cholesterol, Calc 92 mg/dl 06/23/21 02:43 VLDL Cholesterol, Calc 39 mg/dl (0-30) H 06/23/21 02:43 HDL Cholesterol 42 mg/dl 06/23/21 02:43 Cholesterol/HDL Ratio 4.1 (0-5) 06/23/21 02:43 Lipase 18 U/L (11-82) 06/22/21 12:16 SARS-CoV-2, RNA, NAAT NEGATIVE (NEGATIVE) 06/22/21 18:10 Impressions Chest X-Ray 06/22/21 12:06 XR chest 1V portable HISTORY: 46 years-old Male Chest Pain acute atypical chest pain COMPARISON: Chest radiograph 07/11/2005 TECHNIQUE: Portable AP view of the chest FINDINGS: The cardiac silhouette is mildly enlarged. No pneumothorax, pleural effusion, or overt pulmonary edema. Mild subsegmental bibasilar densities suggest atelectasis. Bones appear grossly intact. IMPRESSION: No acute process. ACT 112: Negative or not required by law. The above report was generated using voice recognition software. It may contain grammatical, syntax or spelling errors. Electronically signed by: Triston Barclay M.D. 06/22/2021 12:58 PM Chest CTA 06/22/21 13:33 CT angio chest dissec wo/w con HISTORY: 46 years-old Male CP acute chest pain COMPARISON: Chest radiograph of same day at 12:27 PM TECHNIQUE: CTA of the chest was obtained both with and without the use of 119 mL Optiray 320. 3-D coronal and sagittal MIPS were obtained from the axial data set and were submitted for review. All measurements were obtained according to NASCET criteria. A dose lowering technique was used consistent with the principals of NAYELI. FINDINGS: CTA: The heart is normal in size. Minimal coronary artery calcifications. No thoracic aortic aneurysm or dissection. Bovine morphology of the thoracic aortic arch. There is patency of the imaged great vessels. Unremarkable pulmonary artery. CT CHEST: Unremarkable thyroid. There is no lymphadenopathy. No pneumothorax, pleural ef fusion, airspace consolidation or overt pulmonary edema. Mild bilateral bronchial wall thickening with subsegmental bibasilar atelectasis. There are no suspicious pulmonary nodules or masses. Indeterminate 4 mm solid nodule the basal left lower lobe, image 196. 6 mm fissural nodule of the left midlung on image 138 is suggestive of a probable lymph node. The central airways are patent. Hepatic steatosis. Unremarkable soft tissues. Degenerative changes of the thoracic spine. The bones appear intact. IMPRESSION: 1. Unremarkable CTA of the chest. 2. No adenopathy, pleural effusion or airspace consolidation. 3. Mild nonspecific bronchial wall thickening may represent reactive airway disease versus bronchitis. 4. There are two low suspicion solid pulmonary nodules of the left lung measuring up to 6 mm. Please refer to below summary of Fleischner criteria recommendations for follow- up of incidental CT nodules (Henrique Bond, Guidelines for management of small pulmonary nodules detected on CT scans: A statement from the Fleischner Society, Radiology 237: [phone].) SOLID NODULES Multiple nodules size: <6 mm * Low risk patients: no routine follow-up * high risk patients: optional CT at 12 months Multiple nodules size: 6-8 mm * Low risk patients: follow-up at 3-6 months, then consider further follow-up at 18-24 months * high risk patients: follow-up at 3-6 months, then at 18-24 months if no change Note: newly detected indeterminate nodule in persons 35 years of age or older. * Low risk patients: minimal or absent history of smoking and/or other known risk factors * high risk patients: history of smoking or of other known risk factors (e.g. first degree relative with lung cancer, or exposure to asbestos, radon, uranium) * if a nodule up to 8 mm is partly solid or is ground glass further follow-up is required after 24 months to exclude possible slow growing adenocarcinoma (GANESH) ACT 112: Negative or not required by law. The above report was generated using voice recognition software. It may contain grammatical, syntax or spelling errors. Electronically signed by: Triston Barclay M.D. 06/22/2021 2:36 PM Hospital Course (1) Chest pain, exertional: sinus rhythm Patient presenting from home with reports of chest pain after a bike ride and again after climbing stairs. Seasonal allergies may be contributing? Possible heartburn with referred pain to chest? chest pain symptoms are still present this am. BP within normal limits. Reports maalox given yesterday was not able to resolve his chest pain but that he did feel better somewhat (was given morphine and asa simultaneously) High-sensitivity troponin negative x 4, EKG shows NSR without signs of acute ischemia Noted to be hypertensive on arrival, no previous history of hypertension, hypertensive urgency may be contributing. BP did improve after IV morphine and full dose aspirin given in ED. Lipid panel WNL CTA chest negative for dissection and pulmonary embolism Resting echo performed this am with reading pending. Cardiology consultation Underwent exercise stress test with no evidence for inducible ischemia. Based on his report, he is still having some chest pain and LUE soreness with occasional tingling We discussed starting a PPI trial now, monitoring outpatient BP wtih a home cuff, and discussing symptoms with PCP as outpatient. (2) Pulmonary nodule: CTA chest shows There are two low suspicion solid pulmonary nodules of the left lung measuring up to 6 mm. Outpatient follow-up recommended (3) Bicuspid aortic valve: Echocardiogram reveals possible bicuspid aortic valve without stenosis or regurgitation.Recommend repeat 2D transthoracic echocardiogram and cardiology follow-up in the outpatient setting for further assessment of possible bicuspid aortic valve. Total Time Total Time Spent Total Time Spent (In Minutes): 60 Discharge Plan Discharge Items Patient Disposition: Home - Self-Care Reason For Visit: CHEST PAIN Discharge Diagnosis: atypical chest pain heartburn Condition on Discharge: Good Activity: Resume your previous activity Non-emergency contact: Primary Care Provider Call non-emergency contact if: you have any medication questions, your symptoms worsen, your pain is not controlled, your pain is worsening, your pain is unusual for you and your pain is concerning for you Follow-up/Referrals: PCPCHIOMA [Primary Care Provider] - Diet: Regular Addtl Attending Provider Instructions: Please take the protonix provided at the same time daily roughly 30 minutes prior to a meal. It is recommended that you obtain a home blood pressure cuff and keep a record of your measurements. It is recommended to follow-up with a primary care physician in one week after discharge. Someone will contact you regarding this appointment after the weekend. There were two small (6mm) nodules found in your lungs on chest CT which are likely low risk as you are a non-smoker. Please discuss if any followup imaging is needed with a repeat CT scan in the next 6-12 months to monitor for any changes with these. It is recommended that you follow-up [facility] for a repeat echocardiogram and appointment to discuss the new finding of possible bicuspid aortic valve. a referral may be placed for this by your primary care physician. It was a pleasure taking care of you! Please call if you have any questions or problems. You can reach a [facility] hospitalist on duty at [facility] 24 hours a day by calling [phone]. Take care of yourself. Kylie Douglas, DO [facility] Pending Studies at Discharge: No Stand-Alone Forms: My [facility] Medications and DC Order Prescriptions: New pantoprazole [Protonix] 40 mg tablet,delayed release (DR/EC) 40 mg PO DAILY Qty: 30 RF: 1 Discharge Orders: Discharge Order (Routine); Ordered 06/23/21 Ordered By: Kylie Douglas Admission Data Admit Date/Time: 06/22/21 17:46 Attending Provider: Kylie Douglas Admit Provider: Minesh Brown Primary Care Provider: PCP,NO Other Providers: Igor Bhatia ; Minesh Brown
--- NOTE | 2021-06-24 21:21 | Electrocardiogram Report ---
Test Reason : Blood Pressure : / mmHG Vent. Rate : 079 BPM Atrial Rate : 079 BPM P-R Int : 134 ms QRS Dur : 102 ms QT Int : 396 ms P-R-T Axes : 016 007 010 degrees QTc Int : 454 ms Normal sinus rhythm Normal ECG When compared with ECG of 22-JUN-2021 12:03, No significant change was found Confirmed by Robles Steele ([id number]) on 06/24/2021 9:21:01 PM Referred By: REFERRED SELF Confirmed By:Robles Steele
--- NOTE | 2021-06-24 21:57 | Electrocardiogram Report ---
Test Reason : Blood Pressure : / mmHG Vent. Rate : 065 BPM Atrial Rate : 065 BPM P-R Int : 142 ms QRS Dur : 110 ms QT Int : 424 ms P-R-T Axes : -29 -18 -25 degrees QTc Int : 440 ms Normal sinus rhythm Low voltage QRS Lateral infarct , age undetermined Abnormal ECG When compared with ECG of 22-JUN-2021 17:42, T wave inversion more evident in Inferior leads Confirmed by Robles Steele ([id number]) on 06/24/2021 9:57:48 PM Referred By: REFERRED SELF Confirmed By:Robles Steele
== END 2021-06-23 14:25 | disposition home or self-care (01) ==
LOC: ED 11:55 → 2S 11:55 → SUATTDRO 17:46 → 2S 19:49